=== PATIENT | female | born 1945 | race African-American/Black ===

== ENCOUNTER 2018-07-31 10:49 | Day surgery (SDC) | payer OTHER ==
--- OUTSIDE RECORDS SUMMARY | 2018-07-31 10:52 | XMS REPORT ---
:1945 [facility] Address [address] [place] [address] Dr. Carbajal [address] [place] [id number] Care Team Providers Name Role Phone Unavailable Unavailable Unavailable Problems This patient has no known problems. Allergies, Adverse Reactions, Alerts This patient has no known allergies or adverse reactions. Medications This patient has no known medications.
[2018-07-31] MEDS ORDERED: NA CHLORIDE 0.9% 500 ML ONE (11:20)
[2018-07-31] MEDS ORDERED: BUPIVACAINE 0.25% PF 10 ML VIAL ONE (11:20)
[2018-07-31] MEDS: PHENYLEPHRINE 10% OPTH 5ML ONE ×3 (11:30→11:40)
[2018-07-31] MEDS: CYCLOPENTOLATE 1% OPTH 2 ML ONE ×3 (11:30→11:40)
[2018-07-31] MEDS ORDERED: EPINEPHRINE/PF 1 MG/ML AMP ONE (11:42)
[2018-07-31] MEDS ORDERED: NS 0.9% VIAL 10 ML ONE (11:42)
[2018-07-31] MEDS ORDERED: BALANCED SALT IRRIG PLAIN 500 ML BTL IRR ONE (11:43)
[2018-07-31] MEDS ORDERED: MOXIFLOXACIN HCL 10 DROPS/ML **OR USE OPTH ONE (11:44)
[2018-07-31] MEDS ORDERED: DUOVISC 1 KIT OPTH ONE (11:44)
[2018-07-31] MEDS ORDERED: TETRACAINE HCL 0.5% 2ML OPTH ONE (11:54)
[2018-07-31] MEDS ORDERED: PROPOFOL 200 MG/20 ML VIAL IV ONE (12:18)
[2018-07-31] MEDS ORDERED: LIDOCAINE 2% MPF 5 ML VIAL ONE (12:18)
[2018-07-31] MEDS: LIDOCAINE 2% MPF 5 ML VIAL ONE ×2 (12:20→12:28)
--- NOTE | 2018-07-31 13:01 | P.BOP ---
Preoperative diagnosis: Nuclear sclerotic cataract OS Postoperative diagnosis: Same Primary procedure: Phacoemulsification with IOL OS Estimated blood loss: None Anesthesia: Local (Subtenon's infusion with anesthesia for cataract surgery) Complications: None Implants: SA60WF +23.0 Transferred to: Other (Day surgery) Condition: Good
--- NOTE | 2018-07-31 21:12 | OP ---
Date of Procedure: 07/31/2018 Surgeon: Shadia Mims MD Anesthesiologist: Abad Mathews CRNA, and ALIZA Gallardo, and Yazan Galo M.D. 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 Operation Performed: Phacoemulsification with intraocular lens implant, left eye. Anesthesia: Per cataract surgery. Complications: None. Description Of Procedure: In day surgery, the patient was prepped with Betadine and draped. A conju nctival incision was made in the inferior nasal quadrant with Frandy scissors. A sub-Tenon block c onsisting of a 1:1 mixture of 2% Xylocaine and 0.25% bupivacaine was placed through the conjunctival incision with a blunt cannula. A Honan balloon was placed over the eye and the patient was transferr ed to the operating room. In the operating room the patient was prepped and draped in the usual sterile fashion for ophthalmic surgery. A lid speculum was placed in the left eye. Two paracentesis sites were made superiorly and inferiorly in the limbal cornea. Viscoat was placed in the anterior chamber and a crescent blade wa s used to make a corneal groove and tunnel, and a keratome was used to enter the anterior chamber. P rovisc was placed in the anterior chamber and a 360 degree capsulotomy was performed with a cystitome . The lens was hydrodissected with BSS and rotated freely. The lens was removed with a stop and cho p technique. A 4.46 phaco CDE was used to remove the lens. Residual cortex was removed with the irr igation and aspiration. Provisc was placed in the capsular bag. A SA60WF +23.0 lens was placed in t he capsular bag without complications. Irrigation and aspiration was used to remove residual viscoel astic. The paracentesis sites were hydrated with BSS. The wound and paracentesis sites were inspect ed and found to be watertight. Vigamox 0.07 cc was placed intracamerally at the end of the procedure . The eye was irrigated with balanced salt solution. The eye was patched with a soft cotton patch a nd Whitley metal shield. The patient was returned to day surgery in good condition. Comments: Discharge Instructions: Ms. Johnson is discharged to home in good condition and is to follow up with Dr. Mims today at 3 and then in the morning. SARAY/EDITH Voice ID: [id number] Report ID: [id number]
== END 2018-07-31 13:30 | disposition home or self-care (01) ==
LOC: OR 10:49
PROVIDERS: ATTEND Ophthalmology Retina Specialist
PROC: 08RK3JZ Replacement of Left Lens with Synthetic Substitute, Percutaneous Approach (ICD-10-PCS; principal; 2018-07-31 11:00)
DX: H25.12 Age-related nuclear cataract, left eye (principal); H25.012 Cortical age-related cataract, left eye; H21.512 Anterior synechiae (iris), left eye; E89.0 Postprocedural hypothyroidism; I10 Essential (primary) hypertension; Z79.899 Other long term (current) drug therapy
CPT/HCPCS: 66984; J0171; J2704